=== PATIENT | male | born 1970 | race Caucasian/White ===

== ENCOUNTER 2022-02-04 08:00 | Outpatient (CLI) | payer BC ==
--- NOTE | 2022-02-04 15:08 | XRAY Report ---
PROCEDURE: Ankle 3 View RT INDICATIONS: PAIN IN RIGHT ANKLE TECHNIQUE: 3 views of the ankle were acquired. COMPARISON: None FINDINGS: Bones: No fractures or dislocations. Ankle mortise is normally aligned. No suspicious bony lesions . Soft tissues: No tibiotalar joint effusion. Achilles tendon appears normal. Scattered atheromatous calcifications throughout the vessels. IMPRESSION: No radiographic abnormalities to explain pain. Arterial atherosclerosis. Reviewed by: Brigida Read MD on 02/04/2022 3:07 PM PDT Approved by: Brigida Read MD on 02/04/2022 3:07 PM PDT Station ID: [id number]
== END 2022-02-04 23:59 | disposition home or self-care (01) ==
LOC: DI.S 08:00
PROVIDERS: ATTEND Physician Assistant
DX: M25.571 Pain in right ankle and joints of right foot (principal); I70.208 Unspecified atherosclerosis of native arteries of extremities, other extremity